=== PATIENT | male | born 2000 | race Caucasian/White ===

== ENCOUNTER → 2024-04-11 | Outpatient (CLI) | payer OTHER ==
[2024-04-11 12:05] VITALS: BP 142/102; PULSE 70; RESP 16; TEMP 16.5
--- NOTE | 2024-04-11 12:36 | P.SLEEP ---
History of Present Illness DATE: 04/11/2024 CONSULTATION/NEW PATIENT EVALUATION HISTORY OF PRESENT ILLNESS/SLEEP-WAKE EVALUATION: 23-year-old gentleman had b een evaluated in the sleep center for excessive sleepiness and fatigue during the day and for possible obstructive sleep apnea hypopnea syndrome. SLEEP SCHEDULE: Usually sleep schedule from 121 AM until 78 AM. FALLING ASLEEP: Patient has problems with falling asleep, has TV set in bedroom. DURING SLEEP: Patient sleeps in different positions by himself. No information about snoring. Patient has significant amount of atrial symptoms on during the night. He wakes up from sleep 3 times with 2 episodes of nocturia. No history of hypnogogical hallucinations, sleep paralysis, or cataplexy. DURING THE DAY/WAKE STATE: In the morning patient wake up tired, has difficulties to pay attention, has problems with concentration and irritability. [place] sleepiness scale is 4. Patient does not take any naps. PAST MEDICAL HISTORY: Asthma in childhood. PAST SURGICAL HISTORY: None. MEDICATIONS: None. SOCIAL HISTORY: Please see below. FAMILY HISTORY: Please see below. REVIEW OF SYSTEMS: Multiple awakenings from sleep, tiredness and sleepiness during the day, difficulties to initiate sleep. No fevers. No double vision. No recent chest pain. No shortness of breath. No abdominal pain. No bleeding episodes. No blood in urine. No seizure episodes. PHYSICAL EXAMINATION: GENERAL: A pleasant patient without any distress. VITAL SIGNS: Please see below weight 256 pounds, BMI 36.7. HEENT: PERRLA, EOMI. Evaluation of oropharynx showed tongue protrudes midline, low position of soft palate Mallampati 4, significant retrognathia up to 5 mm. NECK: Supple. No JVD. Thyroid is not palpable. 16.5 inches in circumference. LUNGS: Clear to percussion and to auscultation. Good air exchange. No wheezing or rhonchi. HEART: S1, S2 regular. No murmurs, gallops or rubs. ABDOMEN: Soft and nontender. Bowel sounds are present. No organomegaly appreciated. EXTREMITIES: No clubbing or cyanosis. SANDER WOODEN PENCILS: Awake, alert, and oriented x3. Cranial nerves 2 to 7 intact. There is no fasciculation or atrophy noted. No focal deficits observed. ASSESSMENT: 1. Multiple awakenings from sleep, extremely low position of soft palate Mallampati 4, significant retrognathia up to 5 mm. Obstructive sleep apnea hypopnea syndrome. 2. Difficulties to initiate sleep, TV in bedroom. Psychophysiological insomnia. 3. Obesity, BMI 36.7. 4. History of asthma in childhood. 5 headaches. 6. Significant amount of movements during the sleep, rule out periodic limb movements. PLAN: 1. Polysomnography for evaluation of patient's breathing during sleep and to check for leg movements. 2. Following plan after reading sleep study. 3. Preferable position during sleep on the side. 4. No driving if patient feels any sleepiness. Patient is aware of civil and criminal liability for unsafe driving. 5. Sleep hygiene with regular sleep time for at least 7.5-8 hours. 6. Watching and losing weight. 7. Stimulus control, no watching TV in bedroom. Thank you very much for referring this patient for consultation. Sincerely, Don Galeas MD, PhD, FAASM. Diplomat of [place] [employer], Sleep Medicine Board by [place] [employer] [place] [employer] [facility] [place] Past Medical History Past Medical History: Coronary Artery Disease (CAD) Additional Past Medical History / Comment(s): heart valve bad History of Any Multi-Drug Resistant Organisms: None Reported Past Surgical History: No Surgical Hx Reported Past Anesthesia/Blood Transfusion Reactions: No Reported Reaction Past Psychological History: No Psychological Hx Reported Smoking Status: Never smoker Past Alcohol Use History: Rare Past Drug Use History: None Reported - Past Family History Father Family Medical History: Hyperlipidemia, Hypertension, Sleep Apnea/CPAP/BIPAP Additional Family Medical History / Comment(s): snoring Mother Family Medical History: CVA/TIA, Rheumatoid Arthritis (RA) Sister(s) Family Medical History: Pulmonary Embolus, Thyroid Disorder Additional Family Medical History / Comment(s): had blood clots in lungs Brother(s) Family Medical History: Asthma Physical Exam Vitals: Vital Signs Temp Pulse Resp BP Pulse Ox 04/11/24 12:04 16.5 F L 70 16 142/102 98 Intake and Output 04/10/24 04/11/24 04/11/24 22:59 06:59 14:59 Other: Weight 116.12 kg Sleep Note - Sleep Data ESS Total: 4 - Sleep Note Sleep Note: Temperature: 16.5 F Pulse Rate: 70 Respiratory Rate: 16 Blood Pressure: 142/102 SpO2: 98 Height: 5 ft 10 in Weight: 116.12 kg BMI: Neck Circumference:
== END ==
LOC: 3 N SLEEP 11:33
PROVIDERS: ATTEND Internal Medicine
DX: G47.33 Obstructive sleep apnea (adult) (pediatric) (principal); M26.19 Other specified anomalies of jaw-cranial base relationship; F51.04 Psychophysiologic insomnia; R51.9 Headache, unspecified; E66.9 Obesity, unspecified; Z68.36 Body mass index [BMI] 36.0-36.9, adult; Z87.09 Personal history of other diseases of the respiratory system
CPT/HCPCS: 99202

== ENCOUNTER 2024-04-18 19:30 | Outpatient (CLI) | payer OTHER ==
--- NOTE | 2024-04-19 17:50 | P.PCN ---
Description of Procedure: POLYSOMNOGRAPHY REPORT PROCEDURE(S)/DATE(S): Polysomnography 04/18/2024 CLINICAL: Patient has been seen in the sleep center for evaluation of obstructive sleep apnea-hypopnea syndrome. Please see my consultation. Sleep study has been done for evaluation of patient breathing during the sleep. PROCEDURE: The standard montage for clinical polysomnography included the electroencephalogram, the electrooculogram, the mentalis surface electromyography and Lead II cardiography. The respiratory battery consisted of measurements of nasal/buccal air flow, pressure transducer measurements from nose, thoracic and/or abdominal effort and intercostal surface electromyography. Video monitoring has been done to check for any parasomnia events. Nocturnal oxyhemoglobin saturations were obtained by finger oximetry. Step-sykes titration with positive airway pressure was utilized to control the respiratory events, if necessary. RESULTS: During the diagnostic sleep study sleep efficiency was significantly decreased to 69.2%. Latency to sleep onset was normal at 15.0 min. Sleep architecture showed stage NI was increased to 14.1%, Delta sleep was normal at 13.3%, REM sleep was practically normal 19.8%. Respiratory channel showed 0 obstructive apneas, 0 mixed apneas, 1 central supervisor sunglasses eas, 25 hypopneas with lowest oxygen level 90%. Total apnea hypopnea index was 6.0. Heart rate was in the range between 60 and 77, average 66. EMG showed 5.1 periodic limb movements per hour with 0.9 micro-arousals per hour. IMPRESSIONS: 1. Mild obstructive sleep apnea hypopnea syndrome with history of multiple awakenings from sleep. 2. No significant periodic limb movements have been documented. 3. Low sleep efficiency may indicate insomnia, could be related to first night adaptation response. 4. Snoring have been documented Please see other impressions from consultation PLAN: 1. The patient will have AutoPAP treatment for correction of respiratory abnormalities during the sleep. 2. Losing weight program. 3. Sleep hygiene with regular time in bed for at least 7-1/2 hours. 4. No driving if feeling sleepiness. 5. I will see patient for follow-up visit to evaluate clinical response on treatment, compliance with treatment and [place] adjustments related to mask fitting pressure and humidification. Thank you very much for allowing me to participate in the management of your patient. Sincerely, Don Galeas MD, PhD, FAASM. Diplomat of [place] [employer], Sleep Medicine Board by [place] [employer] [facility] [place]
== END 2024-04-19 06:00 | disposition home or self-care (01) ==
LOC: 3 N SLEEP 19:30
PROVIDERS: ATTEND Internal Medicine
DX: G47.33 Obstructive sleep apnea (adult) (pediatric) (principal)
CPT/HCPCS: 95810